=== PATIENT | male | born 1985 | race Caucasian/White ===

== ENCOUNTER → 2018-03-12 16:02 | Outpatient (CLI) | payer BC | END | disposition home or self-care (01) | LOC: D.CT 16:00 | DX: R91.1 Solitary pulmonary nodule (principal) ==

== ENCOUNTER → 2018-03-28 16:04 | Outpatient (CLI) | payer BC | END | disposition home or self-care (01) | LOC: D.MRI 16:04 | DX: R20.2 Paresthesia of skin (principal) ==

== ENCOUNTER → 2019-10-29 09:15 | Outpatient (CLI) | payer BC | END | disposition home or self-care (01) | LOC: D.RT 10-24 10:30 | PROVIDERS: ATTEND Family Medicine | DX: R06.00 Dyspnea, unspecified (principal); Z20.828 Contact with and (suspected) exposure to other viral communicable diseases ==